=== PATIENT | female | born 1980 | race Two or more races ===

== ENCOUNTER 2025-02-21 19:41 | Emergency (ER) | payer MEDICAID, OTHER ==
[~2025-02-21] VITALS: Ht 157.5 cm; Wt 66.5 kg
[2025-02-21] MEDS ORDERED: CYCL-837 PO (21:56)
[2025-02-21] MEDS ORDERED: ACET500T58 PO (21:56)
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
--- NOTE | 2025-02-21 23:00 | DVH ---
EXAM: CT CERVICAL WITHOUT CONTRAST INDICATION: neck pain EXAM DATE: 02/21/2025 09:52 PM COMPARISON: None TECHNIQUE: Multiple axial CT images of the cervical spine were obtained using bone algorithm. Axial a nd coronal reformatting was done. Bone and soft tissue windows were reviewed. Dose-length product is 427 mGy*cm FINDINGS: No acute compression deformity, fracture, or subluxation. Minimal multilevel degenerative changes with minimal multilevel foraminal stenosis due to facet hyper trophy and uncovertebral hypertrophy. No high-grade spinal canal stenosis. The prevertebral soft tissues are not thickened. Thyroid is unremarkable. Limited sections of the lung apices demonstrate no pneumothorax. IMPRESSION: 1. No acute compression fractures or subluxation.
[2025-02-21 23:54] VITALS: BP 112/67; PULSE 62; RESP 16; TEMP 98.3; O2SAT 100
== END 2025-02-22 00:01 | disposition home or self-care (01) ==
LOC: ER 19:41
DX: S16.1XXA Strain of muscle, fascia and tendon at neck level, initial encounter (principal); Z98.51 Tubal ligation status; Z79.899 Other long term (current) drug therapy; V89.2XXA Person injured in unspecified motor-vehicle accident, traffic, initial encounter; Y93.89 Activity, other specified; Y92.488 Other paved roadways as the place of occurrence of the external cause; Y99.8 Other external cause status
CPT/HCPCS: 72125